=== PATIENT | male | born 1955 | race Caucasian/White ===

== ENCOUNTER 2021-01-24 09:47 | Emergency (ER) | payer MEDICARE, OTHER ==
[~2021-01-24] VITALS: Ht 167.6 cm; Wt 79.4 kg
[2021-01-24 10:02] VITALS: BP 118/66
[2021-01-24] MEDS ORDERED: IBUPROFEN 400 MG TABLET PO ONE (10:30)
[2021-01-24] MEDS ORDERED: COLCHICINE 0.6 MG TABLET ONE (10:47)
[2021-01-24] MEDS: COLCHICINE 0.6 MG TABLET PO ONE (10:48)
[2021-01-24] MEDS ORDERED: PRED20TA GT (11:27)
[2021-01-24] MEDS ORDERED: HYDR-3972 PO (11:27)
== END 2021-01-24 11:43 | disposition home or self-care (01) ==
LOC: EDUNIT# 09:47 → ER 09:54 → EDBD 09:54 → ER 11:43
DX: M10.072 Idiopathic gout, left ankle and foot (principal); I10 Essential (primary) hypertension; F17.200 Nicotine dependence, unspecified, uncomplicated; Z98.890 Other specified postprocedural states
CPT/HCPCS: 36415; 73630-TC; 84550-TC